=== PATIENT | female | born 1995 | race African-American/Black ===

== ENCOUNTER 2017-06-19 12:53 | Emergency (ER) | payer MEDICAID ==
[~2017-06-19] VITALS: Ht 170.2 cm; Wt 87.0 kg
[2017-06-19] MEDS ORDERED: IBUPROFEN 600MG TABLET PO SCH (17:00)
[2017-06-19 17:36] VITALS: BP 116/67
== END 2017-06-19 17:39 | disposition home or self-care (01) ==
LOC: ER 15:51
DX: M25.562 Pain in left knee (principal); F12.10 Cannabis abuse, uncomplicated
CPT/HCPCS: 73560; 99284